=== PATIENT | female | born 1950 | race African-American/Black ===

== ENCOUNTER 2018-06-25 05:44 | Day surgery (SDC) | payer OTHER ==
[2018-06-25] MEDS ORDERED: MIDAZOLAM 1 MG/ML 2 ML INJ (08:22)
[2018-06-25] MEDS ORDERED: FENTAnyl 50 MCG/ML VIAL (08:22)
== END 2018-06-25 11:13 | disposition home or self-care (01) ==
LOC: GIL 05:44
DX: K29.50 Unspecified chronic gastritis without bleeding (principal); K44.9 Diaphragmatic hernia without obstruction or gangrene; K21.9 Gastro-esophageal reflux disease without esophagitis; I10 Essential (primary) hypertension
CPT/HCPCS: 43239; 88305; 88312